=== PATIENT | male | born 1985 | race Caucasian/White ===

== ENCOUNTER 2020-09-01 14:40 | Outpatient (REF) | payer OTHER, SELFPAY | END 2020-09-01 14:41 | disposition home or self-care (01) | LOC: HO.LAB 14:40 | PROVIDERS: Visit Provider Internal Medicine | DX: Z20.822 Contact with and (suspected) exposure to COVID-19 (principal) | CPT/HCPCS: 36415; C9803; U0003 ==

== ENCOUNTER 2023-04-29 11:34 | Outpatient (AMB) | payer OTHER, SELFPAY ==
--- NOTE | 2023-04-29 13:23 | MHC.OFFWIV ---
Intake Vital Signs 04/29/23 13:24 Height 5 ft 10 in Weight 174 lb BMI 25.0 BP 140/100 H Blood Pressure Location Lt brachial Position Sitting Pulse 88 Pulse Source Pulse Oximeter Temp 98.2 F Temp Source Oral Pulse Oximetry (%) 97 Oxygen Delivery Method Room Air Intake Visit Reasons: EP, cough, congestion ([phone]) Intake Note: Patient here for resp issues, wakes up feeling sob, chest pain, congestion and headache. Patient Tobacco Use Status: Current everyday Tobacco user Allergies No Known Allergies Allergy (Verified 04/29/23 14:00) Medication List - Last Reconciled 04/29/23 by Moy Castillo MD No Known Home Meds Do you need a note to return to daycare/school/sports/work: Yes HPI EP, cough, congestion ([phone]) HPI Details Patient presents for a sick visit. Reporting symptoms of sinus congestion, sore throat and difficulty swallowing. Low-grade fever. No family member is sick. No recent travel. Patient reports symptoms of malaise and fatigue. PFSH Social History Patient Tobacco Use Status: Current everyday Tobacco user Physical Exam Vital Signs: Last Vital Signs Temp 98.2 F 04/29/23 13:24 Pulse 88 04/29/23 13:24 BP 140/100 H 04/29/23 13:24 Pulse Ox 97 04/29/23 13:24 Oxygen Delivery Method Room Air 04/29/23 13:24 BMI result Body Mass Index 25.0 Const General: cooperative and healthy appearing Nutritional Appearance: well nourished Orientation/consciousness: patient oriented x3 Limitations: no limitations HEENT Head: Yes normal to inspection Eyes General: appearance normal, both eyes and all related structures Neck Neck: Yes normal visual inspection Chest Chest palpation & inspection: normal palpation of entire chest wall Resp Other: Scattered wheeze bilaterally. Effort & Inspection: normal respiratory effort Neuro General: patient oriented x3 Assessment & Plan Assessment & Plan (1) Acute bronchitis: Code(s): J20.9 - Acute bronchitis, unspecified Plan: Antibiotics ordered. Increase fluid intake. Tylenol for aches and pains. If symptoms worsen, follow-up here for a recheck. Coding Level of Care Code Est Pt Level 3 (34644) Diagnoses Acute bronchitis J20.9
[2023-04-29 13:24] VITALS: BP 140/100; PULSE 88; TEMP 36.8; O2SAT 97; BMI 25.0
== END 2023-04-29 14:04 | disposition home or self-care (01) ==
PROVIDERS: Visit Provider Internal Medicine
DX: J20.9 Acute bronchitis, unspecified (principal)
CPT/HCPCS: 99213